=== PATIENT | female | born 1935 | race Caucasian/White ===

== ENCOUNTER 2021-08-03 15:28 | Emergency (ER) | payer MEDICARE, OTHER ==
[~2021-08-03] VITALS: Ht 152.4 cm; Wt 51.3 kg
[~2021-08-03 15:28] MED LIST: BROVANA15 MCG/2 M INH; BUDESONIDE0.5 MG/2 M INH; CARDURA2 MG PO; INDERAL20 MG PO; LASIX20 MG PO; LIPITOR 10MG TA10 MG PO; NASACORT16.9 ML; PRINIVIL20 MG PO; PROTONIX 40MG T40 MG PO; SINGULAIR10 MG PO; UROCIT-K10 MEQ PO
[2021-08-03 16:40] LABS: BASOPHIL 0.4 % (0-2); EOSINOPHIL 0.4 % (0-7); HCT 33.2 % (37.0-47.0); HGB 10.4 g/dl (12.5-16.0); MCH 29.7 pg (25.0-31.0); MCHC 31.3 g/dL (32.0-36.0); MCV 94.9 fL (78.0-100.0); MONOCYTE 7.2 % (0-12); MPV 9.8 fL (6.0-9.5); NEUTROPHIL 81.4 % (41-80); NRBC 0; PLT 150 K/uL (150-400); RDW 14.1 % (11.5-14.0); WBC 8.3 K/uL (4.0-10.5)
[2021-08-03 17:41] LABS: ALBUMIN 2.6 g/dL (3.4-5.0); BILIRUBIN - TOTAL 0.6 mg/dL (0.2-1.0); CREATININE 0.84 mg/dL (0.51-0.95); GLOBULIN (CALCULATION) 4.4 g/dL; POTASSIUM 5.1 mmol/L (3.5-5.1)
[2021-08-03] MEDS ORDERED: NORCO 5-325 TA1 EACH PO (18:20)
== END 2021-08-03 19:43 | disposition home or self-care (01) ==
LOC: FER 15:28
PROVIDERS: Emergency Medicine
DX: S32.058A Other fracture of fifth lumbar vertebra, initial encounter for closed fracture (principal); T14.8XXA Other injury of unspecified body region, initial encounter; M25.551 Pain in right hip; M25.531 Pain in right wrist; Z88.2 Allergy status to sulfonamides; Z88.3 Allergy status to other anti-infective agents; Z88.1 Allergy status to other antibiotic agents; Z88.8 Allergy status to other drugs, medicaments and biological substances; W17.89XA Other fall from one level to another, initial encounter; Y92.129 Unspecified place in nursing home as the place of occurrence of the external cause
CPT/HCPCS: 36415; 72131; 73060; 73110; 73502; 80053; 85025; 93971; J1170; J2405